=== PATIENT | female | born 1950 | race Caucasian/White ===

== ENCOUNTER → 2019-07-11 | Day surgery (SDC) | payer MEDICARE, OTHER | LOC: MSO 09:29 | DX: Z12.11 Encounter for screening for malignant neoplasm of colon (principal); I10 Essential (primary) hypertension; G47.33 Obstructive sleep apnea (adult) (pediatric); E78.5 Hyperlipidemia, unspecified; K21.9 Gastro-esophageal reflux disease without esophagitis; E11.9 Type 2 diabetes mellitus without complications; Z88.0 Allergy status to penicillin; Z96.653 Presence of artificial knee joint, bilateral | CPT/HCPCS: G0121; 00812; J2704; J7030 ==

== ENCOUNTER → 2020-06-04 | Outpatient (CLI) | payer MEDICARE, OTHER | LOC: MAMMO 10:27 | DX: Z13.820 Encounter for screening for osteoporosis (principal); Z78.0 Asymptomatic menopausal state; Z12.31 Encounter for screening mammogram for malignant neoplasm of breast ==

== ENCOUNTER 2021-01-01 14:03 | Outpatient (RCR) | payer MEDICARE, OTHER | END 2021-01-24 17:00 | disposition home or self-care (01) | LOC: PT 14:03 | DX: M43.16 Spondylolisthesis, lumbar region (principal) ==

== ENCOUNTER 2021-11-28 10:00 | Outpatient (RCR) | payer MEDICARE, OTHER | END 2021-12-21 | disposition home or self-care (01) | LOC: PT | DX: M21.42 Flat foot [pes planus] (acquired), left foot (principal) ==

== ENCOUNTER 2021-12-24 11:29 | Outpatient (RCR) | payer MEDICARE, OTHER | END 2022-01-21 | disposition home or self-care (01) | LOC: PT | DX: M21.42 Flat foot [pes planus] (acquired), left foot (principal) ==

== ENCOUNTER → 2022-01-28 | Outpatient (CLI) | payer MEDICARE, OTHER | LOC: MAMMO 13:22 | DX: Z12.31 Encounter for screening mammogram for malignant neoplasm of breast (principal) ==

== ENCOUNTER 2022-08-26 08:00 | Outpatient (RCR) | payer MEDICARE, OTHER | END 2022-09-23 13:11 | disposition home or self-care (01) | LOC: PT 08:00 | DX: M76.821 Posterior tibial tendinitis, right leg (principal); M76.822 Posterior tibial tendinitis, left leg; M19.072 Primary osteoarthritis, left ankle and foot; M72.2 Plantar fascial fibromatosis ==

== ENCOUNTER 2022-10-22 10:44 | Outpatient (RCR) | payer MEDICARE, OTHER | END 2022-11-21 | disposition home or self-care (01) | LOC: PT | DX: M25.511 Pain in right shoulder (principal) ==

== ENCOUNTER 2023-07-24 08:00 | Outpatient (RCR) | payer MEDICARE, OTHER | END 2023-08-23 | LOC: PT | DX: M19.011 Primary osteoarthritis, right shoulder (principal) ==

== ENCOUNTER 2023-08-24 08:00 | Outpatient (RCR) | payer MEDICARE, OTHER | END 2023-09-23 | disposition home or self-care (01) | LOC: PT | DX: M19.011 Primary osteoarthritis, right shoulder (principal); Z96.611 Presence of right artificial shoulder joint ==

== ENCOUNTER 2023-09-28 08:00 | Outpatient (RCR) | payer MEDICARE, OTHER | END 2023-10-22 | disposition home or self-care (01) | LOC: PT | DX: M19.011 Primary osteoarthritis, right shoulder (principal); Z96.611 Presence of right artificial shoulder joint ==

== ENCOUNTER → 2023-10-15 | Outpatient (CLI) | payer MEDICARE, OTHER | LOC: MAMMO 14:58 | DX: Z12.31 Encounter for screening mammogram for malignant neoplasm of breast (principal) ==

== ENCOUNTER 2023-10-23 08:00 | Outpatient (RCR) | payer MEDICARE, OTHER | END 2023-11-02 17:00 | disposition home or self-care (01) | LOC: PT 08:00 | DX: M19.011 Primary osteoarthritis, right shoulder (principal); Z96.611 Presence of right artificial shoulder joint ==

== ENCOUNTER → 2024-01-04 | Day surgery (SDC) | payer MEDICARE, OTHER ==
[~2024-01-04] MED LIST: fentaNYL 100 MCG/2 ML VIAL IV SCH
== END | disposition home or self-care (01) ==
LOC: MSO 08:44
DX: Z12.11 Encounter for screening for malignant neoplasm of colon (principal); D12.0 Benign neoplasm of cecum; D12.4 Benign neoplasm of descending colon; D12.3 Benign neoplasm of transverse colon; K57.30 Diverticulosis of large intestine without perforation or abscess without bleeding; E66.01 Morbid (severe) obesity due to excess calories
CPT/HCPCS: 00811; J2704; J3010; J7120

== ENCOUNTER → 2024-05-09 | Outpatient (CLI) | payer MEDICARE | LOC: RAD 14:26 | DX: M19.031 Primary osteoarthritis, right wrist (principal) ==

== ENCOUNTER → 2024-11-08 | Outpatient (CLI) | payer MEDICARE | LOC: RAD 09:53 | DX: M48.061 Spinal stenosis, lumbar region without neurogenic claudication (principal); M54.16 Radiculopathy, lumbar region; Z98.1 Arthrodesis status ==